=== PATIENT | male | born 1985 | race Caucasian/White ===

== ENCOUNTER 2021-09-02 14:25 | Emergency (ER) | payer SELFPAY ==
[2021-09-02 14:42] VITALS: PULSE 92; RESP 16; TEMP 37.3; O2SAT 97
--- NOTE | 2021-09-02 14:46 | XRR_ITS ---
PROCEDURE INFORMATION: Exam: XR Left Hand Exam date and time: 09/02/2021 2:46 PM Age: 36 years old Clinical indication: Injury or trauma; Other: Hand caught between two cow; Blunt trauma (contusions or hematomas); Injury details: Left hand was caught between two cows, twisted the hand, pain centered aroung 5th digit of left hand; Additional info: Pinky injury TECHNIQUE: Imaging protocol: XR Left hand. Views: 3 or more views. COMPARISON: No relevant prior studies available. FINDINGS: Bones/joints: Comminuted displaced fracture proximal phalange of the 5th digit. Soft tissues: Unremarkable XR/XR hand LT min 3V* [id number] IMPRESSION: Comminuted fracture proximal phalange 5th digit. Otherwise No acute findings.
--- NOTE | 2021-09-02 14:54 | PC.NURSE ---
States between 2 calves, and they twisted my fingers
--- NOTE | 2021-09-02 15:16 | W.ED.EXTPRO ---
HPI - Extremity Problem General: Chief complaint: Extremity Injury, Upper Stated complaint: LEFT HAND INJURY Time Seen by Provider: 09/02/21 14:55 History of Present Illness: HPI Narrative: Patient states he got his finger caught between 2 calves earlier today while working. Also states he has an upper respiratory infection this been going on for couple days. Denies any Covid-like symptoms. Complaint: extremity pain Onset (ago): hour(s) Pain Consistency: now resolved Location: left and upper extremity Severity scale (1-10): 1 Quality: aching Radiation: none Relieving factors: immobilization Exacerbating factors: range of motion Associated symptoms: Reports other (Upper respiratory symptoms); Deny chest pain or fever(s) Review of Systems Const: Denies: fever(s) or chills ENMT: Reports: nasal congestion Card: Denies: chest pain Resp: Denies: dyspnea, productive cough or non-productive cough Musc: Reports: extremity pain (Left little finger got hurt today) Physical Exam Const: COMMON NORMALS: no acute distress, average body habitus and patient oriented x3 HENMT: COMMON NORMALS: normocephalic HEAD & SCALP: normal to inspection and normocephalic FACE & SINUS: normal facial exam Eye: COMMON NORMALS: conjunctivae normal GENERAL EYE: appearance normal, both eyes and all related structures CONJUNCTIVA: Yes conjunctivae normal Neck/C-Spine: COMMON NORMALS: no JVD Chest: COMMONS NORMALS: normal inspection of the chest Resp: COMMON NORMALS: normal respiratory effort and clear to auscultation bilaterally AUSCULTATION: clear to auscultation bilaterally Cardio: COMMON NORMALS: no JVD, regular rate and regular rhythm RATE: regular rate RHYTHM: regular rhythm GI: COMMON NORMALS: Normal to inspection, nondistended, normoactive bowel sounds present Extremity: LEFT UPPER EXTREMITY: Yes hand & digits (Swelling to left little finger, neuro intact.) Neuro: COMMON NORMALS: patient oriented x3 Course Vital Signs: Vital signs: Vital Signs Temperature 99.1 F 09/02/21 14:42 Pulse Rate 92 09/02/21 14:42 Respiratory Rate 16 09/02/21 14:42 Pulse Oximetry 97 09/02/21 14:42 MDM - Extremity (Nontraumatic) MDM Narrative: Medical decision making narrative: Discussed x-ray images and reviewed by Dr. Huang Discharge Plan Discharge Patient Disposition: Home Clinical Impression: Finger fracture, left Qualifiers: Encounter type: initial encounter Finger: little finger Fracture type: closed Phalanx: proximal Fracture alignment: displaced Qualified Code(s): S62.617A - Displaced fracture of proximal phalanx of left little finger, initial encounter for closed fracture URI (upper respiratory infection) Qualifiers: URI type: unspecified viral URI Qualified Code(s): J06.9 - Acute upper respiratory infection, unspecified Condition: Stable Prescriptions: New amoxicillin 500 mg capsule 500 mg PO TID 10 Days Qty: 30 RF: 0 tramadol 50 mg tablet 50 mg PO TID PRN (Reason: pain) Qty: 7 RF: 0 Discharge Orders: Discharge ED (Routine); Ordered 09/02/21 Ordered By: Nehemias Gamboa Referrals: Jonah Storey DO [Primary Care Provider] - Discharge Diet: Usual diet Discharge Activity: Limit activity as instructed Patient Instructions: Finger Fracture (ED) Activity Restrictions/Additional Instructions: Follow-up with medical provider as directed. Take medications as prescribed. Return to the ER or your medical provider if condition worsens. Please read and understand discharge instructions. If any questions ask please. Wear splint until follow-up with specialist with Dr. Miranda. Coding Level of Care Code ED Knotting Machine Operator Portable for Aristeo Chapin
--- NOTE | 2021-09-03 10:19 | DCPLANNER ---
agency development manager had message to schedule a follow up appointment for patient with ortho in [place]. agency development manager called patient to see where patient wanted the referral to go to [facility] or [facility]. Patient stated that he does not feel that he needs the referral at this time.
== END 2021-09-02 16:41 | disposition left against medical advice (07) ==
PROVIDERS: Emergency Provider Nurse Practitioner Family; PCP Family Medicine
DX: S62.617A Displaced fracture of proximal phalanx of left little finger, initial encounter for closed fracture (principal); J06.9 Acute upper respiratory infection, unspecified; W23.0XXA Caught, crushed, jammed, or pinched between moving objects, initial encounter
CPT/HCPCS: 73130; 99282

== ENCOUNTER 2023-11-09 11:22 | Emergency (ER) | payer OTHER, SELFPAY ==
[2023-11-09 11:22] VITALS: BMI 33.7
[2023-11-09 11:26] VITALS: BP 165/106; PULSE 70; RESP 16; TEMP 36.9; O2SAT 100
--- NOTE | 2023-11-09 11:26 | XRR_ITS ---
PROCEDURE INFORMATION: Exam: XR Right Knee Exam date and time: 11/09/2023 11:45 AM Age: 38 years old Clinical indication: Injury or trauma; Other: Kicked by a cow; Work related; Other: Pain TECHNIQUE: Imaging protocol: Radiologic exam of the right knee. Views: 3 views. COMPARISON: No relevant prior studies available. FINDINGS: Bones/joints: No radiographic evidence of acute fracture or dislocation. Alignment anatomic. Minimal patellofemoral and lateral compartment osteophytosis. Joint spaces preserved. No significant effusion. Soft tissues: Grossly unremarkable. XR/XR knee RT 3V* [id number] IMPRESSION: No acute radiographic findings.
--- NOTE | 2023-11-09 11:30 | W.ED.EXTPRO ---
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 No other injuries denies being struck in the chest head or abdomen. Some pain particularly with any attempted movement. He was not otherwise trampled did not go down hit his head or have any other injury. MD Complaint: joint pain Onset (ago): minute(s) Pain Consistency: constant Location: right and knee Quality: sharp Radiation: none Relieving factors: nothing Exacerbating factors: nothing Associated symptoms: Deny arthralgias, chest pain, fever(s), myalgias, rash or short of breath Review of Systems Const: Denies: fever(s) Card: Denies: chest pain Resp: Denies: dyspnea GI: Denies: abdominal pain Musc: Denies: neck pain or back pain Skin/Breast: Denies: rash Physical Exam Const: COMMON NORMALS: no acute distress GENERAL APPEARANCE: cooperative and comfortable ORIENTATION/CONSCIOUSNESS: Yes awake, Yes oriented to person, Yes oriented to place and Yes oriented to time HENMT: COMMON NORMALS: normocephalic, atraumatic and hearing grossly normal bilaterally HEAD & SCALP: normocephalic and atraumatic Resp: COMMON NORMALS: normal respiratory effort, No retractions, No use of accessory muscles and clear to auscultation bilaterally AUSCULTATION: clear to auscultation bilaterally Cardio: COMMON NORMALS: regular rate, regular rhythm and No murmurs present (Cardio) RATE: regular rate RHYTHM: regular rhythm GI: COMMON NORMALS: Soft to palpation and No hepatosplenomegaly present AUSCULTATION: Yes normoactive bowel sounds PALPATION: Yes Soft to palpation, No Tenderness to palpation present (GI), No Guarding due to palpation present (GI) and Yes No hepatosplenomegaly present Extremity: OTHER: On arrival his right pant leg has been cut back by EMS there is mild swelling and superficial indentation abrasion on the lateral aspect of the right knee anteriorly from where he was kicked. No obvious deformity neurovascularly intact. Neuro: SENSORIUM/ORIENTATION: Yes oriented to person, Yes oriented to place and Yes oriented to time Skin: COMMON NORMALS: no rashes or lesions noted GENERAL SKIN EXAM: no rashes or lesions noted Course Vital Signs: Vital signs: Vital Signs Temperature 98.4 F 11/09/23 11:26 Pulse Rate 70 11/09/23 11:26 Respiratory Rate 16 11/09/23 11:47 Blood Pressure 165/106 11/09/23 11:26 Pulse Oximetry 99 11/09/23 11:47 Oxygen Delivery Me thod Room Air 11/09/23 11:26 MDM - Extremity (Nontraumatic) Medical Decision Making No acute fracture on plain film. Is difficult to evaluate because of discomfort does not have a significant swelling there is no laceration I could not get him to flex the knee even past 10 or 15 degrees to evaluate for any ligamentous instability or laxity. Will place him in a knee immobilizer nonweightbearing on crutches diclofenac for pain follow-up with orthopedics return if has further problems. Medical Records I reviewed the patient's medical records. Lab Data I reviewed the patient's lab results. Radiology Impressions Knee X-Ray 11/09/23 11:26 IMPRESSION: No acute radiographic findings. All radiology interpretation(s) finalized by discharge Discharge Plan Discharge Patient Disposition: Home Clinical Impression: Sprain of right knee Condition: Stable Prescriptions: New diclofenac sodium 75 mg tablet,delayed release (DR/EC) 75 mg PO Q12H PRN (Reason: pain) Qty: 20 0RF Discharge Orders: Discharge ED (Routine); Ordered 11/09/23 Ordered By: Momo Huang Referrals: Jonah Storey DO [Primary Care Provider] - Discharge Diet: Usual diet Discharge Activity: Limit activity as instructed Patient Instructions: Opioid Safety, Pain Management Activity Restrictions/Additional Instructions: Thank you for choosing [facility] for your healthcare needs today. Please realize this is an emergency room and that we are providing you with a medical screening exam and this may not be complete and all inclusive of all the testing and or work up that you may need to determine your ailment or severity of your illness. It is very important that you follow up as instructed or that you return to the Emergency Department should you have concerns or if your condition changes or worsens in any way. You were seen today after a direct blow to your right knee from a large animal. X-rays did not show acute fracture. Would recommend that you leave your knee in a knee immobilizer and do not bear any weight on the right leg use crutches to ambulate. Case management make arrangements for follow-up exam with the orthopedic clinic. Coding Level of Care Code ED Small Lot Operator for Aristeo Chapin
--- NOTE | 2023-11-09 11:37 | PC.PHAR ---
pt states takes no rx or otc medications-pt states only took ozempic once ext shows last filled 11/23/22
[2023-11-09 11:47] VITALS: RESP 16; O2SAT 99
[2023-11-09] MEDS: morphine 4 mg/mL SDV 1 mL IVP (11:47)
[2023-11-09] MEDS: sodium chloride 0.9% 1,000 ML 999 ML IV (11:47)
[2023-11-09] MEDS: ondansetron 2 mg/ML SDV 2 mL 4 MG IVP (11:47)
[2023-11-09 12:56] VITALS: BP 145/94; PULSE 73; RESP 18; O2SAT 97
--- NOTE | 2023-11-09 15:53 | DCPLANNER ---
Message sent to Ortho for a follow appointment [email or web address]
== END 2023-11-09 12:58 | disposition home or self-care (01) ==
PROVIDERS: Emergency Provider Family Medicine; PCP Family Medicine
DX: S83.91XA Sprain of unspecified site of right knee, initial encounter (principal); W55.22XA Struck by cow, initial encounter
CPT/HCPCS: 29530; 73562; 96374; 96375; 99284; J2270; J2405; J7030

== ENCOUNTER → 2023-12-08 13:10 | Outpatient (BNVA) | payer OTHER, SELFPAY | PROVIDERS: PCP Family Medicine; Referring Provider Family Medicine; Visit Provider Specialist | DX: S89.91XA Unspecified injury of right lower leg, initial encounter (principal); S83.91XA Sprain of unspecified site of right knee, initial encounter; W55.22XA Struck by cow, initial encounter | CPT/HCPCS: 73560; 73565 ==